=== PATIENT | male | born 1980 | race Caucasian/White ===

== ENCOUNTER 2017-07-31 11:01 | Outpatient (CLI) | payer MEDICARE ==
[~2017-07-31] VITALS: Ht 175.3 cm; Wt 100.0 kg
--- NOTE | ~2017-07-31 | HEMODYNAMI ---
PATIENT:TENZIN MACKENZIE MEDICAL RECORD: [id number] : 76 LOCATION:[facility] ADMISSION DATE: 07/31/17 Generatedon:07/31/201714:09 Patient name: TENZIN MACKENZIE Patient #: [id number] SSN: [id number] : 1980 Date of study: 07/31/2017 Page: Of Hemodynamic Procedure Report Patient Data Patient Demographics Procedure consent was obtained First Name: TENZIN Gender: Male Last Name: AVRIL : 1980 Middle Initial: RICH Age: 37 year(s) Patient #: [id number] Race: SSN: [id number] Additional ID: [id number] Contact details Address: [address] [place] [address] STREET State: [place] City: [facility] Zip code: [address] Admission Admission Data Admission Date: 07/31/2017 Admission Time: 11:01 Arrival Date: 07/31/2017 Arrival Time: 14:00 Admit Source: Other Insurance Payor: Medicare Height (in.): 69 BSA: 2.15 (m2) Height (cm.): 175.26 BMI: 32.49 (kg/m2) Weight (lbs.): 220 Weight (kg.): 99.79 Lab Results Lab Result Date: 07/31/2017 Lab Result Time: 0:00 Biochemistry Name Units Result Min Max BUN mg/dl 16 --(---*)-- 7 18 Creatinine mg/dl 0.9 --(-*--)-- 0.6 1.3 CBC Name Units Result Min Max Hemoglobin g/dl 15.5 --(-*--)-- 13.5 17.5 Procedure Procedure Types Cath Procedure Diagnostic Procedure [facility] w/Coronaries Procedure Description Procedure Date Procedure Date: 07/31/2017 Procedure Start Time: 13:52 Procedure End Time: 14:05 Procedure Staff Name Function Navi Ramon MD Performing Physician Margaret Campbell RT Monitor Salena Bro RT Scrub Ba Cruz RN Nurse Procedure Data Cath Procedure Fluoroscopy Diagnostic fluoroscopy Total fluoroscopy Time: 2.6 time: 2.6 min min Diagnostic fluoroscopy Total fluoroscopy dose: 836 dose: 836 mGy mGy Contrast Material Contrast Material Type Amount (ml) Isovue 300 65 Entry Location Entry Primary Successful Side Size Upsize Upsize Entry Closure Pace ccessful Closure Location (Fr) 1 (Fr) 2 (Fr) Remarks Device Remarks Radial Right 6 Fr Mechanical artery Short Compression Estimated blood loss: 5 ml Diagnostic catheters Device Type Used For End Catheter Placement DIAGNOSTIC [place] 110cm 5 Multi-vessel Fr catheter ([id number]) Angiography DIAGNOSTIC Pigtail 5Fr LV Angiography catheter ([id number]) Procedure Complications No complications Procedure Medications Medication Administration Route Dosage Oxygen etCO2 Nasal cannula 2 l/min Heparin Flush Bag added to field 2 bags (1000units/500ml NS) 0.9% NaCl I.V. 100 ml/hr Radial Cocktail added to field 1 syringe (Verapomil 2mg/Nitro 400mcg/Heparin 1500units) Fentanyl I.V. 50 mcg Versed I.V. 1 mg Fentanyl I.V. 50 mcg Versed I.V. 1 mg Fentanyl I.V. 50 mcg Versed I.V. 1 mg Fentanyl I.V. 50 mcg Versed I.V. 1 mg Fentanyl I.V. 50 mcg Fentanyl I.V. 50 mcg Radial Cocktail I.A. 1 syringe (Verapomil 2mg/Nitro 400mcg/Heparin 1500units) Hemodynamics Rest BSA: 2.15 (m2) HGB: 15.5 (g/dl) O2 Consumption: Estimated: 258.68 (ml/min) O2 Co nsumption indexed: Estimated:120.32 (ml/min/m) Heart Rate: 64 (bpm) Pressure Samples Time Site Value (mmHg) Purpose Heart Use Rate(bpm) 14:01 LV 105/-30,-13 Snapshot 82 Gradients Valve Time Site Site Mean SEP/DFP Peak To Heart Use 1 2 (mmHg) (sec/min) Peak Rate (mmHg) (bpm) Aortic 14:02 LV AO 86 Snapshots Pre Cath Intra NCS Post Cath Vital Signs Time Heart Resp SPO2 etCO2 NIBP Rhythm Pain Sedation Rate (ipm) (%) (mmHg) (mmHg) Status Level (bpm) 13:38:04 72 16 97 0 110/81(94) NSR 0 (11) 10(A) , No pain 13:42:13 62 17 99 0 124/71(94) NSR 0 (11) 10(A) , No pain 13:46:23 71 18 97 0 127/83(96) NSR 0 (11) 10(A) , No pain 13:50:33 70 16 99 0 106/68(84) NSR 0 (11) 10(A) , No pain 13:54:39 72 16 96 0 117/81(94) NSR 0 (11) 10(A) , No pain 14:02:26 93 16 92 0 115/77(94) NSR 0 (11) 10(A) , No pain Medications Time Medication Route Dose Verified Delivered Reason Notes Effectiveness by by 13:41:53 Oxygen etCO2 2 l/min Navi Cosme Per Nasal [facility] Rick Cruz RN physician cannula 13:42:01 Heparin Flush added 2 bags Navi Cosme used for Bag to [facility] Rick Cruz metal die finisher (1000units/500ml field TRAVIS NS) 13:42:09 0.9% NaCl I.V. 100 Navi Cosme Per ml/hr [facility] Rick Cruz RN physician 13:42:17 Radial Cocktail added 1 Navi Cosme used for (Verapomil to syringe [facility] Rick Cruz metal die finisher 2mg/Nitro field TRAVIS 400mcg/Heparin 1500units) 13:45:33 Fentanyl I.V. 50 mcg Navi Cosme for sedation [facility] Rick Cruz RN, MD 13:45:40 Versed I.V. 1 mg Navi Cosme for sedation [facility] Rick Cruz RN, MD 13:48:18 Fentanyl I.V. 50 mcg Navi Luisy for sedation [facility] Rick Cruz RN, MD 13:48:21 Versed I.V. 1 mg Navi Cosme for sedation [facility] Rick Cruz RN, MD 13:51:29 Fentanyl I.V. 50 mcg Navi Cosme for sedation [facility] Rick Cruz RN, MD 13:51:32 Versed I.V. 1 mg Navi Cosme for sedation [facility] Rick Cruz RN, MD 13:53:08 Radial Cocktail I.A. 1 Navi Mcelroy for (Verapomil syringe [place] [facility] vasodilation 2mg/Lilibeth TRAVIS MD 400mcg/Heparin 1500units) 13:54:48 Fentanyl I.V. 50 mcg Navi Cosme for sedation [facility] Rick Cruz RN, MD 13:54:52 Versed I.V. 1 mg Navi Cosme for sedation [facility] Rick Cruz RN, MD 13:58:19 Fentanyl I.V. 50 mcg Navi Cosme for sedation [facility] Rick Cruz RN, MD 14:00:51 Fentanyl I.V. 50 mcg Navi Cosme for sedation [facility] Rick Cruz RN, MD Procedure Log Time Note 13:17:53 Margaret Adrian RT(R) sent for patient. Start room use. 13:27:54 Time tracking: Regular hours (M-F 7:00 - 5:00) 13:27:59 Plan of Care:Hemodynamics will remain stable., Cardiac rhythm will remain stable., Comfort level will be maintained., Respiratory function will remain adequate., Patient/ family verbilizes understanding of procedure., Procedure tolerated without complication., Recovers from procedure without complications.. 13:28:14 Informed consent obtained and on chart 13:28:20 Arrival Date: 07/31/2017 2:00:00 PM 13:28:26 Insurance Payor : Medicare 13:28:40 Patient Height : 69 inches 13:28:43 Patient Weight : 220 lbs 13:28:43 Admit Source: Other 13:30:13 Lab Result : Hemoglobin 15.5 g/dl 13:30:13 Lab Result : Creatinine 0.9 mg/dl 13:30:13 Lab Result : BUN 16 mg/dl 13:30:40 Patient received from Pre/Post Procedure Room to [facility] 2 Alert and oriented. Tansferred to table in Supine position. 13:30:43 Warm blankets applied, and sara hugger turned on for patient comfort. 13:30:43 Correct patient and procedure confirmed by team. 13:30:44 ECG and BP/O2 sat monitors applied to patient. 13:37:05 Vital chart was started 13:41:53 Oxygen 2 l/min etCO2 Nasal cannula was administered by Ba Cruz RN; Per physician; 13:42:01 Heparin Flush Bag (1000units/500ml NS) 2 bags added to field was administered by Ba Cruz RN; used for procedure; 13:42:09 0.9% NaCl 100 ml/hr I.V. was administered by Ba Cruz RN; Per physician; 13:42:17 Radial Cocktail (Verapomil 2mg/Nitro 400mcg/Heparin 1500units) 1 syringe added to field was administered by Ba Cruz RN; used for procedure; 13:42:24 Baseline sample Acquired. 13:42:28 Rhythm: sinus rhythm 13:42:29 Full Disclosure recording started 13:42:33 H&P Date Dictated: 07/31/2017 Within 30 days and on chart., H&P Addendum completed by physician on day of procedure. (MUST COMPLETE FOR ALL OUTPATIENTS). 13:42:47 Pre-procedure instructions explained to patient. 13:42:47 Pre-op teaching completed and patient verbalized understanding. 13:42:50 Family in waiting room. 13:42:51 Patient NPO since Midnight. 13:42:54 Is the patient allergic to Iodine/contrast media? No. 13:42:55 Was the patient premedicated? No 13:42:57 Is patient on blood thinner?No 13:42:58 Patient diabetic? No. 13:43:00 Previous problem with sedation/anesthesia? No ? 13:43:02 Snore? Yes 13:43:03 Sleep apnea? No 13:43:04 Deviated septum? No 13:43:04 Opens mouth fully? Yes 13:43:05 Sticks out tongue? Yes 13:43:08 Airway obstruction? Yes copd 13:43:11 Dentures? No ? 13:43:15 Pre procedure: right dorsailis pedis pulse 2+ Normal; easily identifiable; not easily obliterated 13:43:18 Pre procedure: left dorsailis pedis pulse 2+ Normal; easily identifiable; not easily obliterated 13:43:20 Patient pain scale 0/10 ?. 13:43:26 IV patent on arrival in left forearm with 0.9% NaCl at [facility]. 13:43:28 Lab results completed and on chart. 13:43:32 Right Radial & Right Groin area was prepped with chlora-prep and draped in sterile fashion 13:43:32 Alarms reviewed by R. N. 13:43:33 Sharps counted by scrub and verified by R.N. 13:44:03 Physician arrived 13:44:03 --------ALL STOP TIME OUT------ 13:44:04 Final Timeout: patient, procedure, and site verified with staff and physician. All members of the team are in agreement. 13:44:06 Right Radial & Right Groin site verified by team. 13:44:08 Physical assessment completed. ASA score P 2 - A patient with mild systemic disease as per Navi Ramon MD. 13:44:13 Sedation plan: IV Moderate Sedation Medication:Versed, Fentanyl 13:44:19 Use device set Radial Dx or PCI 13:44:20 ACIST Syringe (64072) opened to sterile field. 13:44:20 Medline Cath Pack ([id number]) opened to sterile field. 13:44:20 Bag Decanter (2002S) opened to sterile field. 13:44:21 DIAGNOSTIC WIRE .035 260cm J wire (539915) opened to sterile field. 13:44:21 ACIST Hand Control (16450) opened to sterile field. 13:44:22 ACIST Manifold (75748) opened to sterile field. 13:44:22 Tegaderm 4 x 4 (1626W) opened to sterile field. 13:44:23 MBrace Wrist Support ([id number]) opened to sterile field. 13:44:24 SHEATH 6Fr Prelude Radial ([id number]) opened to sterile field. 13:45:33 Fentanyl 50 mcg I.V. was administered by Ba Cruz RN; for sedation; 13:45:40 Versed 1 mg I.V. was administered by Ba Cruz RN; for sedation; 13:48:18 Fentanyl 50 mcg I.V. was administered by Ba Cruz RN; for sedation; 13:48:21 Versed 1 mg I.V. was administered by Ba Cruz RN; for sedation; 13:50:38 Zero performed for pressure channel P1 13:51:29 Fentanyl 50 mcg I.V. was administered by Ba Cruz RN; for sedation; 13:51:32 Versed 1 mg I.V. was administered by Ba Cruz RN; for sedation; 13:52:37 Procedure started. 13:52:44 Local anesthetic to right radial artery with Lidocaine 2% by Navi Ramon MD.INITIAL ACCESS ONLY 13:52:52 A 6 Fr Short sheath was inserted into the Right Radial artery 13:53:08 Radial Cocktail (Verapomil 2mg/Nitro 400mcg/Heparin 1500units) 1 syringe I.A. was administered by Navi Ramon MD; for vasodilation; 13:54:48 Fentanyl 50 mcg I.V. was administered by Ba Cruz RN; for sedation; 13:54:52 Versed 1 mg I.V. was administered by Ba Cruz RN; for sedation; 13:54:55 A DIAGNOSTIC [place] 110cm 5 Fr catheter (522393) was advanced over the wire and used for Multi-vessel Angiography. 13:57:31 LCA angiography performed. 13:57:34 Injector settings: Ml/sec: 3, Volume: 6, 13:58:19 Fentanyl 50 mcg I.V. was administered by Ba Cruz RN; for sedation; 13:59:16 RCA angiography performed. 14:00:20 Injector settings: Ml/sec: 3, Volume: 6, 14:00:26 Catheter removed. 14:00:51 Fentanyl 50 mcg I.V. was administered by Ba Cruz RN; for sedation; 14:01:02 A DIAGNOSTIC Pigtail 5Fr catheter ([id number]) was advanced over the wire and used for LV Angiography. 14:01:42 LV hemodynamics recorded. 14:01:43 LV gram done using ANDREWS 14:01:45 Injector settings: Ml/sec: 5, Volume: 15, 14:02:12 EF : 55 % 14:02:18 Catheter removed. 14:02:34 TR BAND Standard ([id number]) opened to sterile field. 14:02:46 Sheath removed intact; hemostasis achieved with Mechanical Compression to the Right Radial artery. 14:02:48 Procedure ended.(Physican Out) 14:03:25 Fluoroscopy time 02.60 minutes. 14:03:29 Fluoroscopy dose: 836 mGy 14:03:29 Flurop Dose total: 836 14:04:10 Contrast amount:Isovue 300 65ml. 14:04:12 Sharps counted by scrub and verified by R.N. 14:04:13 Insertion/operative site no bleeding no hematoma. 14:04:30 TR band inflated with 10cc of air. 14:04:45 Post right radial artery:stable 14:04:47 Post Procedure Pulses reassessed and unchanged 14:04:52 Post procedure rhythm: unchanged. 14:04:54 Estimated blood loss: 5 ml 14:04:56 Post procedure instruction explained to patient.Patient verbalizes understanding. 14:04:56 Patient needs reinforcement of post procedure teaching. 14:05:20 Procedure and supply charges have been captured, reviewed, submitted and are correct. 14:05:24 Procedure Complication : No complications 14:05:26 Vital chart was stopped 14:05:27 See physician's report for complete and final results. 14:05:30 Report given to Pre/Post Procedure Room. 14:05:33 Patient transfered to Pre/Post Procedure Room with Stretcher. 14:05:36 Procedure ended. 14:05:36 Full Disclosure recording stopped 14:05:39 End room use (Document Last) Device Usage Item Name Manufacture Quantity Catalog Number Hospital Part Current M inimal Lot# / Charge Number Stock Stock Serial# Code ACIST Syringe Acist 1 03815 171776 001233 370476 2 0 (97260) [employer] Medline Cath Cardinal 1 [id number] 458332 09162 348315 5 Pack Health ([id number]) Bag Decanter Microtek 1 2001S 027546 36184 365760 5 (2001S) Medical Inc. DIAGNOSTIC WIRE [facility] 1 723507 378970 613335 088711 3 0 .035 260cm J wire (220626) ACIST Hand Acist 1 16254 004318 202142 004889 5 Control (15049) [employer] ACIST Manifold Acist 1 35919 473924 521957 649575 5 (92240) [employer] Inc Tegaderm 4 x 4 3M 1 1626W 685974 282174 459911 5 (1626W) MBrace Wrist Advanced 1 140-0250-00 953799 11308 712645 5 Support Vascular ([id number]) Dynamics SHEATH 6Fr Merit 1 [id number] 572268 576952 239222 5 Prelude Radial Medical ([id number]) DIAGNOSTIC Terumo 1 40-7223 374402 040433 782486 5 [place] 110cm 5 Fr catheter (608406) DIAGNOSTIC Cardinal 1 [id number] 425931 312309 879956 5 Pigtail 5Fr Health catheter (132451V) TR BAND Terumo 1 [id number] 182531 050155 734103 4 0 Standard ([id number]) Signature Audit Mcdonald Stage Time Signature Unsigned Intra-Procedure 07/31/2017 Margaret Campbell 2:09:23 PM RT(R) Signatures Monitor : Margaret Campbell RT Signature : Date : Time : [facility] [address] [place] [address]
--- NOTE | ~2017-07-31 | OP ---
PATIENT NAME: TENZIN MACKENZIE MEDICAL RECORD: [id number] :76 LOCATION:D.CAT ADMISSION DATE: SURGEON: SAGE MADDEN MD DATE OF OPERATION: 07/31/2017 PROCEDURE: Left heart catheterization, right femoral approach. CATHETERS: A 5-Japanese sheath, 5/4 left and right Manasa, 5/4 pig. The procedure was well tolerated and the patient returned to navas. Sheath removed. FINDINGS: Left ventriculography in the 30-degree ANDREWS view: Normal wall motion. Normal systolic function. CORONARY ANATOMY: LEFT MAIN: Left main is free of disease. LAD: Free of disease in the diagonal system. CIRCUMFLEX: Free of disease in the marginal system. RIGHT CORONARY ARTERY: Totally occluded. Fills well via ouzg-[id number]-[id number] collaterals. IMPRESSION: Normal LV systolic function. Totally occluded right with [id number]-ux-dogmn collaterals. Medical management. TRANSINT:[id number] Voice Confirmation ID: [id number] DOCUMENT ID: [id number] SAGE MADDEN MD at 1001 CC: [id number] DICTATION DATE: 07/31/17 1410 BUILDING MANAGER: 07/31/17 1502 DEP CLI 07/31/17 [id number] [place] [address]
[2017-07-31] MEDS ORDERED: NEXIUM40 MG PO (12:25)
[2017-07-31] MEDS ORDERED: ZETIA10 MG PO (12:25)
[2017-07-31] MEDS ORDERED: BACTRIM DS TABL1 TAB PO (12:26)
[2017-07-31] MEDS ORDERED: ZYRTEC10 MG PO (12:26)
[2017-07-31 12:37] LABS: BASOPHILS 1.1 % (0-2); EOSINOPHILS 1.3 % (0-7); HEMATOCRIT 45.3 % (42.0-54.0); HEMOGLOBIN 15.5 g/dL (13.5-17.5); IMMATURE GRANULOCYTES 0.4 % (0-5); LYMPHOCYTES 26.5 % (15-50); MCH 30.5 pg (26.0-34.0); MCHC 34.2 g/dL (31.0-37.0); MCV 89.2 fL (80.0-100.0); MEAN PLATELET VOLUME 9.2 fL (7.4-10.4); MONOCYTES 9.6 % (2-11); NEUTROPHILS 61.1 % (40-80); PLATELET COUNT 265 10x3/uL (130-400); RBC 5.08 10x6/uL (4.20-6.10); RDW 13.1 % (11.5-14.5); WBC 8.4 10x3/uL (4.8-10.8)
[2017-07-31 12:41] LABS: CALC OSMOLALITY 279 mosm/kg (275-300); CALCIUM 9.1 mg/dL (8.5-10.1); CARBON DIOXIDE 22.5 mmol/L (21.0-32.0); CHLORIDE - SERUM 105 mmol/L (98-107); CREATININE - SERUM 0.9 mg/dL (0.6-1.3); GLUCOSE 98 mg/dL (74-106); SODIUM 140 mmol/L (136-145); UREA NITROGEN 16 mg/dL (7-18); eGFR NON AFRICAN AMERICAN > 90 mL/min (90-120)
[2017-07-31 12:45] VITALS: BP 117/73; Ht 175.3 cm; Wt 100.0 kg
== END 2017-07-31 16:15 | disposition home or self-care (01) ==
LOC: D.CATH 11:01
PROVIDERS: Internal Medicine Interventional Cardiology
DX: I20.9 Angina pectoris, unspecified (principal); R93.1 Abnormal findings on diagnostic imaging of heart and coronary circulation; R07.9 Chest pain, unspecified; E78.5 Hyperlipidemia, unspecified; Z01.812 Encounter for preprocedural laboratory examination

== ENCOUNTER → 2019-09-17 08:46 | Outpatient (CLI) | payer MEDICARE, MEDICAID ==
[2017-07-31 12:45] VITALS: BMI 32.5
[~2019-09-17 08:46] MED LIST: BACTRIM DS TABL1 TAB PO; NEXIUM40 MG PO; ZETIA10 MG PO; ZYRTEC10 MG PO
== END | disposition home or self-care (01) ==
LOC: D.MRI 08:46
PROVIDERS: ATTEND Psychiatry & Neurology Neurology
DX: G35 Multiple sclerosis (principal)

== ENCOUNTER 2020-01-03 18:35 | Emergency (ER) | payer MEDICARE, MEDICAID ==
[~2020-01-03] VITALS: Ht 175.3 cm; Wt 94.6 kg
[2020-01-03 18:46] VITALS: Ht 175.3 cm; Wt 94.6 kg
[2020-01-03] MEDS ORDERED: ZITHROMAX250 MG PO (18:47)
[2020-01-03 19:29] LABS: BASOPHILS 0.9 % (0-2); HEMATOCRIT 45.4 % (42.0-54.0); HEMOGLOBIN 15.3 g/dL (13.5-17.5); IMMATURE GRANULOCYTES 0.5 % (0-5); MCH 30.4 pg (26.0-34.0); MCHC 33.7 g/dL (31.0-37.0); MCV 90.3 fL (80.0-100.0); MEAN PLATELET VOLUME 8.9 fL (7.4-10.4); MONOCYTES 5.1 % (2-11); NEUTROPHILS 67.5 % (40-80); PLATELET COUNT 315 10x3/uL (130-400); RBC 5.03 10x6/uL (4.20-6.10); WBC 10.7 10x3/uL (4.8-10.8)
[2020-01-03 19:38] LABS: APTT 24.7 SECONDS (22.8-39.4); CALC OSMOLALITY 276 mosm/kg (275-300); CALCIUM 8.7 mg/dL (8.5-10.1); CARBON DIOXIDE 26.4 mmol/L (21.0-32.0); CHLORIDE - SERUM 105 mmol/L (98-107); CREATININE - SERUM 1.1 mg/dL (0.6-1.3); GLUCOSE 142 mg/dL (74-106); INR 0.89 (0.85-1.17); POTASSIUM - SERUM 3.6 mmol/L (3.5-5.1); PROTIME 12.1 SECONDS (11.6-15.0); SODIUM 137 mmol/L (136-145); UREA NITROGEN 15 mg/dL (7-18); eGFR NON AFRICAN AMERICAN 78 mL/min (90-120)
[2020-01-03 19:54] LABS: ALBUMIN 3.7 g/dL (3.4-5.0); ALKALINE PHOSPHATASE 67 U/L (30-120); ALT (SGPT) 38 U/L (10-68); BILIRUBIN - TOTAL 0.19 mg/dL (0.2-1.3); CKMB 0.6 U/L (0.0-3.6); CREATINE KINASE 52 UL (21-232); PROTEIN - SERUM 7.4 g/dL (6.4-8.2); TROPONIN-I < 0.017 ng/mL (0.000-0.060)
[2020-01-03 21:03] LABS: BILIRUBIN NEGATIVE (NEGATIVE); KETONE NEGATIVE (NEGATIVE); NITRITE NEGATIVE (NEGATIVE); UROBILINOGEN NORMAL mg/dL (< 2)
[2020-01-03 21:08] LABS: AMORPHOUS SEDIMENT >1+ LPF (NONE SEEN); BACTERIA FEW HPF (NONE SEEN); EPITHELIAL CELLS 0-5 /hpf (0-5); WHITE CELLS - URINE 0-5 HPF (0-1)
[2020-01-03 21:27] VITALS: BP 134/79
== END 2020-01-03 21:29 | disposition home or self-care (01) ==
LOC: D.ER 18:35
PROVIDERS: Family Medicine
DX: B34.9 Viral infection, unspecified (principal); R50.9 Fever, unspecified